=== PATIENT | female | born 1990 | race Caucasian/White ===

== ENCOUNTER → 2023-07-05 11:13 | Outpatient (REF) | payer MEDICARE, OTHER, SELFPAY | LOC: HWRAD 11:13 | PROVIDERS: ATTENDING PHYSICIAN Internal Medicine Geriatric Medicine | DX: Z11.1 Encounter for screening for respiratory tuberculosis (principal) | CPT/HCPCS: 71046 ==

== ENCOUNTER 2024-08-19 17:50 | Emergency (ER) | payer MEDICARE, OTHER, SELFPAY ==
[2024-08-19 17:57] VITALS: BP 124/77
[2024-08-19 18:45] VITALS: BP 140/89; BMI 30.6
--- NOTE | 2024-08-19 19:11 | ED.GENMED ---
History of Present Illness
General
Chief Complaint: Crisis Evaluation
Source: patient
Time Seen by Provider: 08/19/24 18:40
History of Present Illness
History of Present Illness:
33-year-old female with past medical history of hypertension, hyperlipidemia, diabetes, previous CVA, anxiety/bipolar disorder/PTSD presenting to the emergency department for evaluation of suicidal ideation without plan or intent. Patient
requesting a 201. She denies any physical concerns at this time. Patient coming from [facility] with staff
Past History
Past History
ED Past Medical History: CVA, HTN, Hypercholesterolemia and Psychiatric
Social History
Tobacco: Non-smoker
Alcohol: None
Drug: None
Personal: Single
Living: with family
Employment: Employed
Family History
Family History: Other (Noncontributory)
Review of Systems
Review of Systems
All Other Systems: ROS reviewed and negative except as documented in HPI and ROS
Phy Exam
Physical Exam
Physical Exam:
GENERAL: Alert , in no apparent distress, eating food
EYE: conjunctiva clear
Head: Normocephalic atraumatic
NECK: Supple,
ENT: mmm.
LUNGS: no acute respiratory distress
NEUROLOGICAL: Alert and oriented
SKIN: Warm and dry, skin intact.
MUSCULOSKELETAL: well perfused.
PSYCH: Normal and appropriate interaction.
Scores
Heart Failure Risk
Heart Failure Risk Score: Not Applicable
Heart Score for Chest Pain Patients
STEMI patient?: Not applicable
Withdrawal Assessment of Alcohol
Withdrawal Assessment Completed?: Not applicable
Course
Orders/Labs/Results
Orders:
Orders
08/19/24 18:47
Crisis Consult Urgent
Reason for Consult: SI, no plan
observation [ED Special Safety Observation] ONCE
Observation level: One to Two
Vital Signs
Initial and Last Documented VS:
Initial Vital Signs
Temp Pulse Resp BP Pulse Ox
99.0 F 70 16 124/77 99
08/19/24 17:57 08/19/24 17:57 08/19/24 17:57 08/19/24 17:57 08/19/24 17:57
Last Documented Vital Signs
Temp Pulse Resp BP Pulse Ox
98.5 F 76 20 140/89 99
08/19/24 18:45 08/19/24 18:45 08/19/24 18:45 08/19/24 18:45 08/19/24 18:45
MDM/Problems Addressed
MDM/Problems Addressed:
33-year-old female presenting to the emergency department for evaluation of suicidal ideation without plan or intent. History of similar in the past. Patient requesting in . She is without any physical concerns at this time. Crisis
consultation ordered. Patient to be kept on 2-1 observation. Otherwise currently remained stable.
Chronic conditions affecting care: Psychiatric illness
Acute Exacerbation and/or Progression of Chronic Illness: Psychiatric illness
*Pulse Oximetry
Patient hypoxic: no
*Critical Care Note
Total Time (30-74mins, 75-104mins- exclusive of procedures): Not Applicable
Patient Management
Escalation/DeEscalation of care consider admission/obs:
Patient seen and evaluated by Salvatore Britton. She no longer has any suicidal ideations. She has an appointment with her own therapist scheduled for tomorrow. Salvatore contacted [facility] and patient can come back to their facility where
they will have her monitored. Patient aware of return precautions to the ER.
ED Attending Note
-
Portions of this chart may have been created with voice recognition software.� Occasional wrong word or��sound alike� substitutions may have occurred due to the inherent limitations of voice recognition software.
Discharge Plan
Departure
Patient Disposition: Other
Date of Disposition: 08/19/24
Time of Disposition: 20:36
Patient with high blood pressure during this ER visit?: No
Discharge Problem:
Passive suicidal ideations
Prescriptions:
No Action
quetiapine 25 MG tablet
100 mg PO HS
paroxetine HCl 20 MG tablet
40 mg PO DAILY
Referrals:
UNKNOWN - PT NOT,INTERVIEWE [Family Provider] -
Interventions
Interventions:
*Risk Screen - Suicide Last Done: 08/19/24 17:52
*General Assessment Last Done: 08/19/24 17:57
*Neglect/Abuse Screening Last Done: 08/19/24 17:57
*ED- Fall Risk Assessment Last Done: 08/19/24 18:45
*ED COVID-19 Vaccine History Last Done: 08/19/24 18:45
ED-Psychological Assessment Last Done: 08/19/24 18:45
Discharge Date and Time
Print Language: [place]
== END 2024-08-19 21:18 | disposition other institution (70) ==
LOC: EMR 17:50
PROVIDERS: EMERGENCY PHYSICIAN Emergency Medicine
DX: R45.851 Suicidal ideations (principal); I10 Essential (primary) hypertension; E78.00 Pure hypercholesterolemia, unspecified; E11.9 Type 2 diabetes mellitus without complications; F31.9 Bipolar disorder, unspecified; F41.9 Anxiety disorder, unspecified; F43.10 Post-traumatic stress disorder, unspecified; Z86.73 Personal history of transient ischemic attack (TIA), and cerebral infarction without residual deficits
CPT/HCPCS: 99283